=== PATIENT | male | born 1990 | race Caucasian/White ===

== ENCOUNTER 2018-01-25 11:07 | Emergency (ER) | payer OTHER, SELFPAY ==
[~2018-01-25] VITALS: Ht 182.9 cm; Wt 76.6 kg
[2018-01-25 11:08] VITALS: BP 132/83
[2018-01-25] MEDS ORDERED: PROPARACAINE OPHTH 0.5%, 15ML ONE (11:43)
[2018-01-25] MEDS ORDERED: FLUORESCEIN OPHTHALMIC 1 MG STRIP EACHEYE ONE (12:00)
[2018-01-25] MEDS ORDERED: PROPARACAINE OPHTH 0.5%, 15ML EACHEYE ONE (12:00)
== END 2018-01-25 14:14 | disposition home or self-care (01) ==
LOC: ED 14:08
DX: T54.2X1A Toxic effect of corrosive acids and acid-like substances, accidental (unintentional), initial encounter (principal); H10.211 Acute toxic conjunctivitis, right eye; Y93.89 Activity, other specified; Y99.8 Other external cause status; Y92.219 Unspecified school as the place of occurrence of the external cause
CPT/HCPCS: 99283